=== PATIENT | female | born 1975 | race Caucasian/White ===

== ENCOUNTER 2016-11-21 19:08 | Emergency (ER) | payer MEDICAID ==
[~2016-11-21] VITALS: Ht 165.1 cm; Wt 79.7 kg
[~2016-11-21 19:08] MED LIST: FERR27TA; PNV1TABL12; PREN1TAB49
[2016-11-21 19:20] VITALS: Ht 165.1 cm; Wt 79.7 kg
[2016-11-21] MEDS ORDERED: SOD CHLORIDE 0.9% 500 ML IV STA (20:56)
[2016-11-21] MEDS ORDERED: morphine 4 MG/ML VIAL IV STA (20:56)
[2016-11-21] MEDS ORDERED: ONDANSETRON 4 MG INJ IV STA (20:56)
[2016-11-21 21:36] LABS: ADD SCAN DIFF NO
--- NOTE | 2016-11-21 21:39 | RADRPT ---
PROCEDURE: US right upper quadrant CLINICAL INDICATION: Abdominal pain TECHNIQUE: Multiple real-time images were acquired of the patient's right upper abdomen utilizing a high resolution transducer. COMPARISON: None available FINDINGS: Liver: Normal in size, contour and echogenicity. The maximum dimension estimated at 14.9 cm . Gallbladder: Multiple mobile echogenic foci with distal acoustic shadowing are present. . gallblad chele wall thickening of the 0.6 mm is present. There is no evidence of pericholecystic fluid. No son ographic Ware's sign is reported. Common bile duct: Normal; 4.5 mm. There is no evidence for choledocholithiasis. Right Kidney: Normal; maximum length measured at approximately 9.8 cm. Pancreas: Visualized portions are normal. The tail is partially obscured by bowel gas. RPTAT:HJJR IMPRESSION: Cholelithiasis mild gallbladder wall thickening without report of a sonographic Ware's sign to sug gest cholecystitis. Physician Crystal Date Time Electronically viewed and signed by Physician Crystal on 11/21/2016 21:38 /
[2016-11-21 21:43] LABS: BASOPHILS % 0.3 % (0.0-2.0); EOSINOPHILS % 0.4 % (0.0-7.0); HEMATOCRIT 41.7 % (37.0-47.0); HEMOGLOBIN 13.9 g/dl (12.0-16.0); LYMPHOCYTES # 1.7 10^3/ul (0.8-2.9); LYMPHOCYTES % 15.8 % (15.0-51.0); MEAN CORPUSCULAR HGB CONC 33.3 g/dl (32.0-37.0); MEAN CORPUSCULAR VOLUME 96.1 fl (82.0-101.0); MEAN PLATELET VOLUME 9.3 fl (7.4-10.4); MONOCYTE # 0.6 10^3/ul (0.3-0.9); MONOCYTES % 6.1 % (0.0-11.0); NEUTROPHILS % 76.8 % (39.0-77.0); PLATELET COUNT 295 10^3/UL (140-415); RED BLOOD COUNT 4.34 10^6/ul (4.20-5.40); RED CELL DISTRIBUTION WIDTH 12.5 % (11.5-14.5); WHITE BLOOD COUNT 10.5 10^3/ul (4.8-10.8)
[2016-11-21 21:52] LABS: ADD UMIC YES; URINE BILIRUBIN (Dip) NEGATIVE (NEGATIVE); URINE BLOOD (Dip) TRACE (NEGATIVE); URINE COLOR YELLOW (YELLOW); URINE GLUCOSE (Dip) NEGATIVE (NEGATIVE); URINE KETONES (Dip) 15 (NEGATIVE); URINE LEUKOCYTE ESTERASE (Dip) NEGATIVE (NEGATIVE); URINE NITRITE (Dip) NEGATIVE (NEGATIVE); URINE TOTAL PROTEIN (Dip) NEGATIVE (NEGATIVE); URINE UROBILINOGEN (Dip) 0.2 E.U./dL (0.1-1.0)
[2016-11-21 22:03] LABS: BACTERIA,URINE FEW; SQUAMOUS EPITHELIAL CELL,UR FEW; URINE RBCS 0-2 /HPF (0)
[2016-11-21 22:06] LABS: ALBUMIN 4.5 g/dl (3.3-4.9)
[2016-11-21 22:07] LABS: POTASSIUM 3.9 mmol/L (3.5-5.1)
[2016-11-21 22:09] LABS: ALBUMIN/GLOBULIN RATIO 1.04; BILIRUBIN,INDIRECT 0.5 mg/dl (0-1.1); BILIRUBIN,TOTAL 0.5 mg/dl (0.2-1.3); CREATININE 0.57 mg/dl (0.44-1.00); TOTAL PROTEIN 8.8 g/dl (6.1-8.1)
[2016-11-21 22:10] LABS: CALCIUM 9.3 mg/dl (8.4-10.2)
[2016-11-21] MEDS ORDERED: HYDR-906 PO (22:45)
[2016-11-21] MEDS ORDERED: ONDA4TAB8 PO (22:45)
[2016-11-21 22:54] VITALS: BP 130/79; PULSE 80; RESP 16
--- NOTE | 2016-11-22 01:01 | ERD ---
ER Documentation Chief Complaint Date/Time DATE: 11/22/16 TIME: 00:57 Chief Complaint RLQ AP SINCE 5AM, +N/V +CHILLS HPI Patient is a 41-year-old female who presents to the ED with right upper quadrant pain that started this morning. She states that she woke up with pain. She has never had this pain in the past. She complains of nausea and nonbloody nonbilious emesis. She denies radiation of pain. She denies fever or chills. She states that her last bowel movement was today. She denies constipation or diarrhea. Denies leg pain or swelling. Denies chest pain, cough, shortness of breath or difficulty breathing. Denies headache or dizziness. She is not taking any medication for his symptoms besides Tylenol. Which helped minimally. ROS All systems reviewed and are negative except as per history of present illness. Medications Home Meds Active Scripts Ondansetron Hcl* (Zofran*) 4 Mg Tablet, 4 MG PO Q6H for NAUSEA AND/OR VOMITING, #30 TAB Prov:MARCO EMERSON PA-C 11/21/16 Hydrocodone/Acetaminophen ([place] 5-325 Tablet) 1 Each Tablet, 1 TAB PO Q6H Y for PAIN, #7 TAB Prov:MARCO EMERSON PA-C 11/21/16 Reported Medications Ferrous Sulfate (Iron) 1 Tab Tablet 03/08/11 Vits W-Ca,Fe,Fa(<1MG) () 1 Tab Tablet 03/08/11 Ferrous Sulfate (Iron) 1 Tab Tablet 02/28/11 Pnv Cmb#21/Iron/Folic Acid ( Complete [place]) 1 Tab Tablet 02/28/11 Allergies Allergies: Coded Allergies: No Known Allergy (Verified , 04/04/12) PMhx/Soc History of Surgery: No Anesthesia Reaction: No Hx Neurological Disorder: No Hx Respiratory Disorders: No Hx Cardiac Disorders: No Hx Psychiatric Problems: No Hx Miscellaneous Medical Probl: No Hx Alcohol Use: No Hx Substance Use: No Hx Tobacco Use: No Smoking Status: Never smoker FmHx Family History: No coronary disease, No diabetes, No other Physical Exam Vitals Vital Signs Date Time Temp Pulse Resp B/P Pulse Ox O2 Delivery O2 Flow Rate FiO2 11/21/16 22:54 80 16 130/79 100 Room Air 11/21/16 19:20 99.9 81 18 136/72 100 Physical Exam GENERAL: Well-developed, well-nourished female. Appears in no acute distress. HEAD: Normocephalic, atraumatic. EYES: Pupils are equally reactive bilaterally. EOMs grossly intact. No conjunctival erythema. ENT: Moist mucous membranes. No uvula deviation. No kissing tonsils. No exudates. NECK: Supple. No lymphadenopathy or thyromegaly. No meningismus. negative kernig. negative brudinski. LUNG: Clear to auscultation bilaterally. No rhonchi, wheezing, rales or coarse breath sounds. HEART: Regular rate and rhythm. No murmurs, rubs or gallops. ABDOMEN: No scars, ecchymosis or rashes noted. Soft, and nondistended. Positive bowel sounds in all four quadrants. No rebound tenderness, no guarding. (-) McBurneys point tenderness. No CVA tenderness. Tenderness in the right upper quadrant. Negative Ware sign SKIN: Normal color. Warm and dry. No rashes or lesions. Capillary refill < 2 seconds Result Diagram: 11/21/16191911/21/161919 Results 24 hrs Laboratory Tests Test 11/21/16 19:20 11/21/16 21:10 Alanine Aminotransferase (ALT/SGPT) 58IU/L Albumin 4.5g/dl Albumin/Globulin Ratio 1.04 Alkaline Phosphatase 111IU/L Anion Gap 19 Aspartate Amino Transf (AST/SGOT) 35IU/L Basophils # 0.010^3/ul Basophils % 0.3% Blood Urea Nitrogen 7mg/dl Calcium Level 9.3mg/dl Carbon Dioxide Level 25mmol/L Chloride Level 101mmol/L Creatinine 0.57mg/dl Direct Bilirubin 0.00mg/dl Eosinophils # 0.010^3/ul Eosinophils % 0.4% Globulin 4.30g/dl Glucose Level 101mg/dl Hematocrit 41.7% Hemoglobin 13.9g/dl Indirect Bilirubin 0.5mg/dl Lipase 145U/L Lymphocytes # 1.710^3/ul Lymphocytes % 15.8% Mean Corpuscular Hemoglobin 32.0pg Mean Corpuscular Hemoglobin Concent 33.3g/dl Mean Corpuscular Volume 96.1fl Mean Platelet Volume 9.3fl Monocytes # 0.610^3/ul Monocytes % 6.1% Neutrophils # 8.010^3/ul Neutrophils % 76.8% Nucleated Red Blood Cells # 0.010^3/ul Nucleated Red Blood Cells % 0.0/100WBC Platelet Count 33704^3/UL Potassium Level 3.9mmol/L Red Blood Count 4.3410^6/ul Red Cell Distribution Width 12.5% Sodium Level 141mmol/L Total Bilirubin 0.5mg/dl Total Protein 8.8g/dl White Blood Count 10.510^3/ul Urine Bacteria FEW Urine Bilirubin NEGATIVE Urine Clarity CLEAR Urine Color YELLOW Urine Glucose NEGATIVE% Urine Hemoglobin TRACE Urine Ketones 15 Urine Leukocyte Esterase NEGATIVE Urine Microscopic RBC 0-2/HPF Urine Microscopic WBC 0-2/HPF Urine Nitrite NEGATIVE Urine Specific [place] 1.025 Urine Squamous Epithelial Cells FEW Urine Total Protein NEGATIVE Urine Urobilinogen 0.2 E.U./dL Urine pH 6.0 Current Medications Medications (Trade) Dose Ordered Sig/Mila Route PRN Reason Start Time Stop Time Status Last Admin Dose Admin Sodium Chloride (NS) 500 ml @ 500 mls/hr Q1H STAT IV 11/21/16 20:56 11/21/16 21:55 DC 11/21/16 21:36 Morphine Sulfate (morphine) 4 mg ONCE STAT IV 11/21/16 20:56 11/21/16 21:00 DC 11/21/16 21:35 Ondansetron HCl (Zofran Inj) 4 mg ONCE STAT IV 11/21/16 20:56 11/21/16 21:00 DC 11/21/16 21:35 Procedures/MDM ER COURSE: I kept the patient and/or family informed of laboratory and diagnostic imaging results throughout the emergency room course. EKG, MONITORS, & DIAGNOSTIC IMAGING: [place] [id number] Radiology Main Line: [phone] DIAGNOSTIC IMAGING REPORT Patient: SUKHDEEP PRIETO : 1975 Age: 41 Sex: F MR #: [id number] DOS: 11/21/162055 Ordering MD: MARCO EMERSON PA-C Location: [facility] Room/Bed: PROCEDURE: US right upper quadrant CLINICAL INDICATION: Abdominal pain TECHNIQUE: Multiple real-time images were acquired of the patient's right upper abdomen utilizing a high resolution transducer. COMPARISON: None available FINDINGS: Liver: Normal in size, contour and echogenicity. The maximum dimension estimated at 14.9 cm . Gallbladder: Multiple mobile echogenic foci with distal acoustic shadowing are present. . gallbladder wall thickening of the 0.6 mm is present. There is no evidence of pericholecystic fluid. No sonographic Ware's sign is reported. Common bile duct: Normal; 4.5 mm. There is no evidence for choledocholithiasis. Right Kidney: Normal; maximum length measured at approximately 9.8 cm. Pancreas: Visualized portions are normal. The tail is partially obscured by bowel gas. RPTAT:HJJR IMPRESSION: Cholelithiasis mild gallbladder wall thickening without report of a sonographic Ware's sign to suggest cholecystitis. Physician Crystal Date Time Electronically viewed and signed by Moises Stoner Physician on 11/21/2016 21:38 JR/ CC: MARCO EMERSON PA-C MEDICATIONS: Fluids, morphine, Zofran. Tolerated medication well with no adverse reaction. Seen improvement in symptoms. LAB INTERPRETATION: CBC showed no evidence of systemic infection or severe anemia. CMP showed no evidence of electrolyte abnormalities, severe acidosis, alkalosis, renal failure , or liver disease. Lipase showed no evidence of acute pancreatitis. UA showed no evidence of leukocytes, nitrites or hematuria. Urine test was negative. MEDICAL DECISION MAKING: This is a 41-year-old female who presents with right upper quadrant abdominal pain 1 day. Vital signs were reviewed. Patient is afebrile. Patient is not hypoxic. Patient is not toxic or ill-appearing. I consulted with Dr. Luna who reviewed her imaging studies and laboratory studies. Patient ultrasound is read by radiologist shows cholelithiasis with mild gallbladder wall thickening without report of a sonographic Ware sign to suggest cholecystitis. Patient does not have a white count or a neutrophil shift. She does not have infection her urine. And her liver enzymes and lipase are within normal limits. Low suspicion for ACS, AAA, perforated ulcer, bowel obstruction, cholecystitis, choledocholithiasis, cholangitis, pancreatitis, hepatic abscess, appendicitis, diverticulitis, gastroenteritis, hepatitis, peptic ulcer disease, HELLP syndrome. DISCHARGE: At this time, patient is stable for discharge and outpatient management with no new complaints during the ER course. Patient was sent home with Gianfranco and Dolores. Copies of imaging studies and laboratory studies were given to patient. Patient will be discharged home with instructions to recheck for new or worsening symptoms such as fever, nausea, weakness, LOC and to follow up with primary care in the next 1-2 days. Patient was advised to return to the ER for any new or worsening symptoms. Plan was discussed and patient and/or family understands and agrees. Home instructions were given. Departure Diagnosis: Primary Impression: Cholelithiasis Cholelithiasis location: other site Biliary obstruction: without biliary obstruction Qualified Code: K80.80 - Biliary calculus of other site without obstruction Condition: Stable Patient Instructions: Gallstones Additional Instructions: Llame al doctor MAANA y dayanna skyler GERALD PARA DENTRO DE 1-2 LITTLE.Dgale a la secretaria que nosotros le instruimos hacer esta gerald.Avise o llame si villeda condicin se empeora antes de la gerald. Regresa aqui si peor o no mejor. MARCO EMERSON PA-C Nov 22, 2016 01:01
== END 2016-11-21 22:55 | disposition home or self-care (01) ==
LOC: FTE 19:08
DX: K80.80 Other cholelithiasis without obstruction (principal); R11.2 Nausea with vomiting, unspecified
CPT/HCPCS: 36415; 76705; 80053; 81001; 83690; 85025; 96374; 96375; J2270; J2405; J7040; Z7502; 81003